=== PATIENT | female | born 1985 | race Two or more races ===

== ENCOUNTER 2023-06-14 22:58 | Emergency (ER) | payer MEDICAID ==
[~2023-06-14] VITALS: Ht 165.1 cm; Wt 83.9 kg
[2023-06-14 23:20] VITALS: BP 111/80; PULSE 89; RESP 17; TEMP 98; O2SAT 99
[2023-06-15 00:52] VITALS: BP 131/83; RESP 16
[2023-06-15 00:53] VITALS: O2SAT 97
[2023-06-15 01:01] LABS: BASOPHILS # (AUTO) 0.1 K/uL (0.00-0.22); BASOPHILS % (AUTO) 0.9 % (0.0-2.0); EOSINOPHILS # (AUTO) 0.3 K/uL (0-0.4); EOSINOPHILS % (AUTO) 3.7 % (0.0-4.0); HEMATOCRIT 40.2 % (36-48); HEMOGLOBIN 13.6 g/dL (12.0-16.0); LYMPHOCYTES # (AUTO) 2.9 K/uL (2.5-16.5); LYMPHOCYTES % (AUTO) 37.4 % (20.5-51.1); MEAN CORPUSCULAR HEMOGLOBIN 27 pg (27-31); MEAN CORPUSCULAR HGB CONC 34 g/dL (33-37); MONOCYTES # (AUTO) 0.5 K/uL (0.8-1.0); NEUTROPHILS # (AUTO) 4.1 K/uL (1.8-7.7); PLATELET COUNT (AUTO) 263 K/uL (140-450); RED BLOOD CELL COUNT(AUTO) 5.09 MIL/uL (4.20-5.40); RED CELL DISTRIBUTION WIDTH 14.7 % (11.6-13.7); WHITE BLOOD COUNT (AUTO) 7.9 K/uL (4.8-10.8)
[2023-06-15 01:16] LABS: ANION GAP 10.8 (8-16); CALCIUM 9.6 mg/dL (8.5-10.1); CARBON DIOXIDE 29.1 mmol/L (21-32); CREATININE 0.7 mg/dL (0.6-1.3); POTASSIUM 3.9 mmol/L (3.5-5.1)
[2023-06-15] MEDS ORDERED: ALBU0.0912 IH (02:01)
[2023-06-15] MEDS ORDERED: ROBAC PO (02:01)
[2023-06-15] MEDS ORDERED: AZIT250T4 PO (02:01)
== END 2023-06-15 02:19 | disposition home or self-care (01) ==
LOC: MED 22:58
DX: J20.9 Acute bronchitis, unspecified (principal); M25.512 Pain in left shoulder; Z79.899 Other long term (current) drug therapy
CPT/HCPCS: 36415; 71045; 80048; 83880; 84484; 85025; 85379; 93005; 99285; Q0092